=== PATIENT | male | born 1970 | race Caucasian/White ===

== ENCOUNTER 2017-09-07 11:57 | Emergency (ER) | payer BC ==
--- NOTE | 2017-09-07 13:46 | RAD ---
INDICATION: Pain and swelling at the distal right index finger COMPARISON: None. TECHNIQUE: 3 views of the right index finger were obtained. FINDINGS: No radiographically apparent subcutaneous foreign body is seen. The bones are normal alignment. Joint spaces appear maintained. No fracture is seen. IMPRESSION: NORMAL RADIOGRAPH OF THE RIGHT INDEX FINGER. NO FOREIGN BODY IS VISUALIZED.
[2017-09-07 13:59] VITALS: BP 129/84
--- NOTE | 2017-09-07 16:38 | ED ---
Skin Complaint - HPI Summary HPI Summary: patient presents to the ED with concern for a foreign body in the distal tip of his right index finger. He states there was a metal foreign body that punctured his right index finger 4 days ago and he continues with swelling and pain. He is unsure of the foreign body. Denies any fevers, sweats, chills or erythema to the distal tip of the finger. The puncture wound is extremely small and does not require any care. He denies any other health concerns, but is requesting smoking cessation information. - History of Current Complaint Chief Complaint: EDExtremityUpper Time Seen by Provider: 09/07/17 12:17 Stated Complaint: RIGHT SWOLLEN INDEX FINGER Hx Obtained From: Patient Onset/Duration: Started Hours Ago Skin Exposure Onset/Duration: Hours Ago Timing: Constant Onset Severity: Moderate Current Severity: Moderate Pain Intensity: 0 Pain Scale Used: 0-10 Numeric Skin Location: Hand Character: Swelling Aggravating Symptom(s): Nothing Alleviating Symptom(s): Nothing Associated Signs & Symptoms: Negative Related History: Trauma, Foreign Body - Allergy/Home Medications Allergies/Adverse Reactions: Allergies Allergy/AdvReac Type Severity Reaction Status Date / Time Penicillins Allergy Hives Verified 09/07/17 12:11 PMH/Surg Hx/FS Hx/Imm Hx Previously Healthy: Yes - Immunization History Date of Tetanus Vaccine: "I think withing the last 10 years" Hx Pertussis Vaccination: No Immunizations Up to Date: Unable to Obtain/Confirm Infectious Disease History: No Infectious Disease History: Denies: Traveled Outside the [place] in Last 30 Days - Social History Occupation: Employed Full-time Lives: With Family Alcohol Use: Occasionally Hx Substance Use: No Substance Use Type: Reports: None Hx Tobacco Use: Yes Smoking Status (MU): Current Every Day Smoker Review of Systems Constitutional: Negative Negative: Fever, Chills, Fatigue Eyes: Negative Cardiovascular: Negative Respiratory: Negative Positive: no symptoms reported, see HPI Musculoskeletal: Negative Positive: Other - small puncture wound to the right index finger Neurological: Negative All Other Systems Reviewed And Are Negative: Yes Physical Exam Triage Information Reviewed: Yes Vital Signs On Initial Exam: Initial Vitals Temp Pulse Resp BP Pulse Ox 98.2 F 62 18 127/98 99 09/07/17 12:07 09/07/17 12:07 09/07/17 12:07 09/07/17 12:07 09/07/17 12:07 Vital Signs Reviewed: Yes Appearance: Positive: Well-Appearing, No Pain Distress, Well-Nourished Skin: Positive: Warm, Skin Color Reflects Adequate Perfusion Head/Face: Positive: Normal Head/Face Inspection Eyes: Positive: Normal, EOMI, PAIGE Neck: Positive: Supple, Nontender, No Lymphadenopathy Respiratory/Lung Sounds: Positive: Clear to Auscultation, Breath Sounds Present Cardiovascular: Positive: RRR, Pulses are Symmetrical in both Upper and Lower Extremities Musculoskeletal: Positive: Normal, Strength/ROM Intact Neurological: Positive: Speech Normal Psychiatric: Positive: Normal, Affect/Mood Appropriate AVPU Assessment: Alert Diagnostics - Vital Signs Vital Signs Temp Pulse Resp BP Pulse Ox 09/07/17 13:58 98.4 F 54 16 129/84 97 09/07/17 12:07 98.2 F 62 18 127/98 99 - Laboratory Lab Statement: Any lab studies that have been ordered have been reviewed, and results considered in the medical decision making process. Course/Dx - Course Course Of Treatment: Patient is evaluated for distal tip foreign body. X-rays obtained and negative for any foreign body. No signs of infection including erythema or warmth. He is okay for discharge at this time. I have encouraged ibuprofen and ice. - Diagnoses Provider Diagnoses: Puncture wound of right index finger Discharge - Discharge Plan Condition: Stable Disposition: HOME Patient Education Materials: How to Stop Smoking (ED) Referrals: No Primary Care Phys,NOPCP [Primary Care Provider] - Additional Instructions: Ice intermittently for 5-10 minutes at a time will help with some swelling Ibuprofen for inflammation
== END 2017-09-07 13:58 | disposition home or self-care (01) ==
LOC: ED 11:57
DX: S61.230A Puncture wound without foreign body of right index finger without damage to nail, initial encounter (principal); W26.9XXA Contact with unspecified sharp object(s), initial encounter; Y92.9 Unspecified place or not applicable; F17.210 Nicotine dependence, cigarettes, uncomplicated
CPT/HCPCS: 73140; 99282